=== PATIENT | male | born 1985 | race African-American/Black ===

== ENCOUNTER 2016-04-23 16:58 | Emergency (ER) | payer BC, OTHER ==
--- NOTE | 2016-04-23 17:09 | PDOC ---
History of Present Illness <Garrison Holman - Last Filed: 04/23/16 17:39> - General History Source: Patient Exam Limitations: No Limitations - History of Present Illness Initial Comments: 04/23/16 17:41 The patient is a 30 year old male, with no significant past medical history, who presents to the emergency department with blood in his urine. The patient reports that this morning when he woke up he had the sudden urge to urinate, he states that he urinated a large amount and then felt some dysuria but there was no blood present in his urine. He reports that 30 minutes prior to arrival to the emergency department he felt the same sensation of dysuria and then noticed that there was a significant amount of blood in his urine and there was a clot present in the urine. The patient reports that he urinated in the ED without pain and without blood. He denies any recent vigorous physical activity. He denies back pain, abdominal pain, and any recent trauma. He denies chest pain, shortness of breath, headache and dizziness. He denies fever, chills, nausea, vomit, diarrhea and constipation <Melissa Bolton - Last Filed: 04/23/16 17:45> - General Chief Complaint: Hematuria Stated Complaint: BLOOD IN URINE Time Seen by Provider: 04/23/16 17:02 Past History - Psycho/Social/Smoking Cessation Hx Anxiety: No Suicidal Ideation: No Smoking Status: Yes Smoking History: Former smoker Have you smoked in the past 12 months: Yes Number of Cigarettes Smoked Daily: 2 'Breaking Loose' booklet given: 02/28/16 <Garrison Holman - Last Filed: 04/23/16 17:39> <Melissa Bolton - Last Filed: 04/23/16 17:45> - Past Medical History Allergies/Adverse Reactions: Allergies Allergy/AdvReac Type Severity Reaction Status Date / Time No Known Allergies Allergy Verified 04/23/16 17:00 Home Medications: Ambulatory Orders NK [No Known Home Medication] 04/23/16 Review of Systems - Review of Systems Able to Perform ROS?: Yes Comments:: 04/23/16 17:42 CONSTITUTIONAL: Absent: fever, no chills, no fatigue EYES: Absent: visual changes ENT: Absent: ear pain, no sore throat CARDIOVASCULAR: Absent: chest pain, no palpitations RESPIRATORY: Absent: cough, no SOB GI: Absent: abdominal pain, no nausea, no vomiting, no constipation, no diarrhea GENITOURINARY: +hematuria, +dysuria Absent: no frequency MUSCULOSKELETAL: Absent: back pain, no arthralgia, no myalgia SKIN: Absent: rash <Melissa Bolton - Last Filed: 04/23/16 17:45> *Physical Exam - Vital Signs Last Vital Signs Temp Pulse Resp BP Pulse Ox 98 F 85 18 148/96 98 04/23/16 17:06 04/23/16 17:06 04/23/16 17:06 04/23/16 17:06 04/23/16 17:06 - Physical Exam Comments: 04/23/16 17:44 GENERAL: Well-appearing, well-nourished. No apparent distress. HEENT: Normocephalic, atraumatic. PERRL, EOM intact. CARDIOVASCULAR: Normal S1, S2. Regular rate and rhythm. PULMONARY: Clear to auscultation bilaterally. ABDOMEN: Soft, non-distended, non-tender. EXTREMITIES: Normal ROM in all four extremities. No gross deformities. SKIN: Warm, dry. No rash NEUROLOGICAL: No focal neurological deficits. <Melissa Bolton - Last Filed: 04/23/16 17:45> ED Treatment Course - ADDITIONAL ORDERS Additional order review: Laboratory Results 04/23/16 17:10 Urine Color Yellow Urine Appearance Clear Urine pH 6.5 Ur Specific [place] 1.020 Urine Protein Negative Urine Glucose (UA) Negative Urine Ketones Negative Urine Blood Trace-intact Urine Nitrite Negative Urine Bilirubin Negative Urine Urobilinogen 0.2 e.u/dl Ur Leukocyte Esterase Negative <Melissa Bolton - Last Filed: 04/23/16 17:45> Medical Decision Making - Medical Decision Making 04/23/16 17:08 The patient is well-appearing and in no acute distress Will obtain urinalysis and culture 04/23/16 17:39 Trace blood noted on urinalysis No evidence of UTI No evidence of ureterolithiasis Clinical impression: Microscopic hematuria Will refer to urology I discussed the physical exam findings, ancillary test results and final diagnoses with the patient. I answered all of the patient's questions. The patient was satisfied with the care received and felt comfortable with the discharge plan and treatment plan. The patient will call their primary care physician within 24 hours to arrange follow-up and will return to the Emergency Department with any new, persistent or worsening symptoms. <Garrison Holman - Last Filed: 04/23/16 17:39> *DC/Admit/Observation/Transfer <Garrison Holman - Last Filed: 04/23/16 17:39> - Attestations Scribe Attestion: 04/23/16 17:42 Documentation prepared by KELLY Mullen, acting as medical billing and coding instructor for Garrison Holman MD. <Melissa Bolton - Last Filed: 04/23/16 17:45> Diagnosis at time of Disposition: Hematuria - Discharge Dispostion Disposition: HOME Condition at time of disposition: Improved - Referrals Referrals: Austin Rothman MD [Staff Physician] - 3 days - Patient Instructions Printed Discharge Instructions: DI for Hematuria Additional Instructions: Return to the emergency department immediately with ANY new, persistent or worsening symptoms. You MUST call and follow up with your doctor tomorrow. Please make sure your doctor reviews the results of your emergency department evaluation. - Post Discharge Activity Work/School Note: Back to Work
[2016-04-23 17:19] VITALS: BP 148/96; PULSE 85; TEMP 98; BMI 33.9
[2016-04-23 17:26] LABS: PH,URINE 6.5 (4.5-8); URINE APPEARANCE Clear; URINE BILIRUBIN Negative (NEGATIVE); URINE BLOOD Trace-intact (NEGATIVE); URINE GLUCOSE (UA) Negative (NEGATIVE); URINE KETONE Negative (NEGATIVE); URINE LEUK ESTERASE Negative (NEGATIVE); URINE NITRITE Negative (NEGATIVE); URINE PROTEIN Negative (NEGATIVE); URINE UROBILINOGEN 0.2 E.U/dl (0.2-1.0)
[2016-04-23 17:28] LABS: URINE COLOR YELLOW
== END 2016-04-23 17:52 | disposition home or self-care (01) ==
LOC: FER 16:58
DX: R31.29 Other microscopic hematuria (principal)
CPT/HCPCS: 81003; 87086; 99281-25

== ENCOUNTER 2019-12-30 17:06 | Emergency (ER) | payer BC, OTHER ==
[2019-12-30 17:15] VITALS: BP 149/101; PULSE 69; TEMP 98.4; BMI 33.9
--- NOTE | 2019-12-30 17:16 | PDOC ---
Rapid Medical Evaluation Time Seen by Provider: 12/30/19 17:11 Medical Evaluation: Allergies Allergy/AdvReac Type Severity Reaction Status Date / Time No Known Allergies Allergy Verified 12/30/19 17:11 12/30/19 17:11 Pt presents for evaluation of elevated blood pressure and chest pressure since last night. States he has been off of his blood pressure meds for about two weeks d/t pharmacy issues. Restarted them yesterday Exam: BP 149/101. RRR S1S2 present. Lungs CTAB Orders: labs, EKG, CXR Pt to proceed to the ER for further evaluation Discharge Disposition - Diagnosis Chest pain Qualifiers: Chest pain type: unspecified Qualified Code(s): R07.9 - Chest pain, unspecified - Referrals - Patient Instructions - Post Discharge Activity
[2019-12-30 18:03] LABS: BASO % 1.1 % (0-2.0); EOS % 1.1 % (0-4.5); HEMATOCRIT 48.5 % (35.4-49); HEMOGLOBIN 15.5 GM/dL (11.7-16.9); LYMPH % 27.6 % (8-40); MCH 28.7 pg (25.7-33.7); MEAN CELL VOLUME 89.6 fl (80-96); MEAN PLT VOLUME 8.3 fl (7.5-11.1); MONO % 8.9 % (3.8-10.2); NEUT % 61.3 % (42.8-82.8); PLATELET COUNT 205 K/MM3 (134-434); RBC 5.42 M/mm3 (4.00-5.60); RDW 13.1 % (11.9-15.9); WHITE BLOOD COUNT 7.5 K/mm3 (4.0-10.0)
--- NOTE | 2019-12-30 18:17 | PDOC ---
History of Present Illness - General Chief Complaint: Blood Pressure Problem Stated Complaint: BLOOD PRESSURE PROBLEM Time Seen by Provider: 12/30/19 17:11 History Source: Patient Exam Limitations: No Limitations - History of Present Illness Initial Comments: 12/30/19 18:12 34-year-old male history of hypertension ran out of amlodipine 10 mg daily approximately 2 weeks ago. Presents to ED complaining of midsternal chest pressure with tingling to bilateral upper and lower extremities since 2 AM today with intermittent palpitations. Patient fell asleep from approximately 5 AM to 12 noon today awoke with the same symptoms, took amlodipine 10 mg one tablet and feels "slightly better at this time ". Denies shortness of breath, nausea, vomiting, back pain, abdominal pain, cough, recent illness, calf pain, recent travel, known sick contacts. Smokes approximately 7 cigarettes daily, occasional alcohol consumption, denies any other use of illicits. has pmd at [facility] (Dr. Bowers). ROS: as above PE: GENERAL: well-appearing, NAD HEAD: NCAT EYES: Pupils equal, round and reactive to light, sclera anicteric, conjunctiva clear ENT: Normal bilateral ear canals and TMs, pharynx: no erythema, no exudate, uvula midline NECK: supple CHEST: nontender RESP: clear, no w/r/r CARDIO: rrr, no m/g/r ABD: +BS, soft, nontender, non distended BACK: no midline spinal ttp, no CVAT EXTREMITIES: Normal range of motion, no edema NEUROLOGICAL: Normal speech, normal gait SKIN: Warm, Dry Is this a multiple visit Asthma Patient?: No Past History - Medical History Allergies/Adverse Reactions: Allergies Allergy/AdvReac Type Severity Reaction Status Date / Time No Known Allergies Allergy Verified 12/30/19 17:11 Home Medications: Ambulatory Orders Amlodipine Besylate [Norvasc -] 10 mg PO DAILY 12/30/19 COPD: No HTN: Yes Thyroid Disease: No - Immunization History Immunization Up to Date: No - Psycho-Social/Smoking History Smoking Status: Yes Smoking History: Current every day smoker Have you smoked in the past 12 months: Yes Number of Cigarettes Smoked Daily: 2 Information on smoking cessation initiated: No 'Breaking Loose' booklet given: 02/28/16 - Substance Abuse Hx (Audit-C & DAST Scrn) How often the patient has a drink containing alcohol: 2-3 times / week Number of drinks the patient has on a typical day: 3 or 4 How often the patient has six or more drinks on one occasion: Never Score: In Men: 4 or > Positive; In Women: 3 or > Positive: 4 Screen Result (Pos requires Nsg. Audit-10AR): Positive In the last yr the pt used illegal drug/Rx for NonMed reason: No Score: Yes response is considered Positive: 0 Screen Result (Positive result requires Nsg. DAST-10): Negative *Physical Exam - Vital Signs Last Vital Signs Temp Pulse Resp BP Pulse Ox 98.4 F 69 18 149/101 H 100 12/30/19 17:13 12/30/19 17:13 12/30/19 17:13 12/30/19 17:13 12/30/19 17:13 ED Treatment Course - LABORATORY CBC & Chemistry Diagram: 12/30/19 17:39 12/30/19 17:39 - ADDITIONAL ORDERS Additional order review: 12/30/19 17:39 RBC 5.42 MCV 89.6 MCHC 32.0 RDW 13.1 MPV 8.3 Neutrophils % 61.3 Lymphocytes % 27.6 D Monocytes % 8.9 Eosinophils % 1.1 Basophils % 1.1 Medical Decision Making - Medical Decision Making 12/30/19 18:16 34-year-old male history of hypertension ran out of amlodipine 10 mg daily approximately 2 weeks ago. Presents to ED complaining of midsternal chest p ressure with tingling to bilateral upper and lower extremities since 2 AM today with intermittent palpitations. Patient fell asleep from approximately 5 AM to 12 noon today awoke with the same symptoms, took amlodipine 10 mg one tablet and feels "slightly better at this time ". Denies shortness of breath, nausea, vomiting, back pain, abdominal pain, cough, recent illness, calf pain, recent travel, known sick contacts. Smokes approximately 7 cigarettes daily, occasional alcohol consumption, denies any other use of illicits. has pmd at [facility] (Dr. Bowers). labs including trop CXR ecg: HR 65, nsr, no acute t or tw changes re assess 12/30/19 18:49 CXR: Unremarkable on my wet read Discussed labs including negative troponin with patient initial BP 149/101, repeat BP 136/91 Advised patient to continue taking amlodipine 10 mg daily as prescribed Advised patient to remain hydrated Follow-up with your primary care doctor within 1 week Return to ED if any concerning symptoms Discharge - Discharge Information Problems reviewed: Yes Clinical Impression/Diagnosis: Chest pain Qualifiers: Chest pain type: unspecified Qualified Code(s): R07.9 - Chest pain, unspecified Condition: Stable Disposition: HOME - Admission No - Follow up/Referral Referrals: Erika Bowers MD [Primary Care Provider] - - Patient Discharge Instructions Additional Instructions: Continue taking amlodipine 10 mg daily as directed Follow-up with your doctor within 1 week Return to ED if any concerning symptoms - Post Discharge Activity
[2019-12-30 18:32] LABS: ALBUMIN 3.7 g/dl (3.4-5.0); ALK PHOS 104 U/L (45-117); ANION GAP 5 MMOL/L (8-16); BILIRUBIN,TOTAL 0.4 mg/dL (0.2-1); BLOOD UREA NITROGEN 12.4 mg/dL (7-18); CHLORIDE 104 mmol/L (98-107); CO2 29 mmol/L (21-32); CREATININE 1.2 mg/dL (0.55-1.3); GLUCOSE,RANDOM 81 mg/dL (74-106); SGOT/AST 26 U/L (15-37); SGPT/ALT 30 U/L (13-61); SODIUM 138 mmol/L (136-145); TOT PROT 7.7 g/dl (6.4-8.2)
[2019-12-30 18:57] LABS: INR 1.05 (0.83-1.09); PROTHROMBIN TIME (PATIENT) 12.4 SEC (9.7-13.0)
--- NOTE | 2020-01-01 10:59 | EKG ---
Test Reason : Blood Pressure : / mmHG Vent. Rate : 065 BPM Atrial Rate : 065 BPM P-R Int : 190 ms QRS Dur : 100 ms QT Int : 390 ms P-R-T Axes : 055 071 023 degrees QTc Int : 405 ms NORMAL SINUS RHYTHM MODERATE VOLTAGE CRITERIA FOR LVH, MAY BE NORMAL VARIANT BORDERLINE ECG WHEN COMPARED WITH ECG OF 17-JUL-2019 04:49, NO SIGNIFICANT CHANGE WAS FOUND Confirmed by MD Marco, Td ([id number]) on 01/01/2020 10:59:05 AM Referred By: Confirmed By:Td Lara MD
== END 2019-12-30 19:12 | disposition home or self-care (01) ==
LOC: JER 17:06
DX: R07.9 Chest pain, unspecified (principal)
CPT/HCPCS: 36415; 71046-TC-FY; 80053; 82550; 82553; 84484; 85025; 85610; 93005; 93010; 99285-25

== ENCOUNTER 2020-05-11 02:45 | Emergency (ER) | payer BC, OTHER ==
[2020-05-11 02:59] VITALS: TEMP 98.2; BMI 23.7
[2020-05-11 03:38] LABS: BASO % 1.1 % (0-2.0); EOS % 1.2 % (0-4.5); HEMATOCRIT 46.6 % (35.4-49); HEMOGLOBIN 15.1 GM/dL (11.7-16.9); LYMPH % 26.4 % (8-40); MCH 29.2 pg (25.7-33.7); MCHC 32.4 g/dl (32.0-35.9); MONO % 9.4 % (3.8-10.2); NEUT % 61.9 % (42.8-82.8); PLATELET COUNT 205 K/MM3 (134-434); RBC 5.17 M/mm3 (4.00-5.60); RDW 13.8 % (11.9-15.9); WHITE BLOOD COUNT 6.8 K/mm3 (4.0-10.0)
[2020-05-11 03:52] LABS: CHLORIDE 110 mmol/L (98-107); POTASSIUM 4.2 mmol/L (3.5-5.1); SODIUM 144 mmol/L (136-145)
[2020-05-11 03:55] LABS: ALBUMIN 3.7 g/dl (3.4-5.0); ANION GAP 5 MMOL/L (8-16); BLOOD UREA NITROGEN 13.9 mg/dL (7-18); CALCIUM 8.8 mg/dL (8.5-10.1); CO2 29 mmol/L (21-32)
[2020-05-11 03:56] LABS: GLUCOSE,RANDOM 90 mg/dL (74-106)
[2020-05-11 03:58] LABS: CREATININE 1.2 mg/dL (0.55-1.3); SGOT/AST 16 U/L (15-37); SGPT/ALT 26 U/L (13-61)
[2020-05-11 04:00] LABS: BILIRUBIN,TOTAL 0.3 mg/dL (0.2-1); TOT PROT 7.2 g/dl (6.4-8.2)
[2020-05-11 04:01] LABS: ALK PHOS 101 U/L (45-117)
[2020-05-11 04:41] VITALS: BP 142/90; PULSE 81
== END 2020-05-11 04:40 | disposition home or self-care (01) ==
LOC: JER 02:45
DX: I10 Essential (primary) hypertension (principal)
CPT/HCPCS: 36415; 71046-TC-FY; 80053; 82550; 82553; 84484; 85025; 93005; 93010; 99284-25

== ENCOUNTER 2020-07-02 01:35 | Emergency (ER) | payer BC, OTHER ==
[2020-07-02 01:40] VITALS: TEMP 98.6; BMI 32.5
[2020-07-02] MEDS ORDERED: IBUPROFEN 600 MG TABLET (FP) PO ONE ×2 (01:57→02:01)
[2020-07-02 02:04] VITALS: BP 137/89; PULSE 79
== END 2020-07-02 02:06 | disposition home or self-care (01) ==
LOC: FER 01:35
DX: M54.10 Radiculopathy, site unspecified (principal)
CPT/HCPCS: 99284-25

== ENCOUNTER 2020-11-10 03:06 | Emergency (ER) | payer BC, OTHER ==
[2020-11-10 03:12] VITALS: TEMP 99.2; BMI 32.3
[2020-11-10] MEDS ORDERED: ASPIRIN 81 MG CHEWABLE TABLETS PO ONE (03:13)
[2020-11-10] MEDS ORDERED: ASPIRIN 81 MG CHEWABLE TABLETS ONE (03:23)
[2020-11-10 04:20] LABS: BASO % 0.5 % (0-2.0); EOS % 1.7 % (0-4.5); HEMOGLOBIN 15.9 GM/dL (11.7-16.9); LYMPH % 31.9 % (8-40); MEAN CELL VOLUME 87.9 fl (80-96); MEAN PLT VOLUME 8.2 fl (7.5-11.1); MONO % 7.6 % (3.8-10.2); NEUT % 58.3 % (42.8-82.8); PLATELET COUNT 195 10^3/uL (134-434); RBC 5.46 M/mm3 (4.00-5.60); RDW 13.8 % (11.9-15.9); WHITE BLOOD COUNT 7.6 K/mm3 (4.0-10.0)
[2020-11-10 04:36] LABS: CHLORIDE 107 mmol/L (98-107); SODIUM 140 mmol/L (136-145)
[2020-11-10 04:38] LABS: CALCIUM 8.6 mg/dL (8.5-10.1)
[2020-11-10 04:39] LABS: ALBUMIN 3.7 g/dl (3.4-5.0); ANION GAP 7 MMOL/L (8-16); BLOOD UREA NITROGEN 12.1 mg/dL (7-18); CO2 26 mmol/L (21-32); GLUCOSE,RANDOM 114 mg/dL (74-106)
[2020-11-10 04:42] LABS: CREATININE 1.3 mg/dL (0.55-1.3); SGOT/AST 21 U/L (15-37); SGPT/ALT 34 U/L (13-61)
[2020-11-10 04:43] LABS: BILIRUBIN,TOTAL 0.2 mg/dL (0.2-1)
[2020-11-10 04:44] LABS: ALK PHOS 107 U/L (45-117); TOT PROT 7.6 g/dl (6.4-8.2)
[2020-11-10 05:20] VITALS: BP 125/84; PULSE 80
== END 2020-11-10 05:28 | disposition home or self-care (01) ==
LOC: FER 03:06
DX: R07.9 Chest pain, unspecified (principal)
CPT/HCPCS: 36415; 71046-TC-FY; 80053; 82550; 82553; 84484; 85025; 93005; 99285-25

== ENCOUNTER 2021-07-18 00:09 | Emergency (ER) | payer BC, OTHER ==
[2021-07-18 00:20] VITALS: BP 153/93; PULSE 87; TEMP 98.5; BMI 32.3
[2021-07-18] MEDS ORDERED: MAG HYDROX/AL HYDROX/SIMETH 30 ML UNIT-DOSE CUP PO ONE (01:02)
[2021-07-18] MEDS ORDERED: ACETAMINOPHEN 500 MG TABLET (FP) PO ONE (01:02)
[2021-07-18] MEDS ORDERED: ACETAMINOPHEN 500 MG TABLET (FP) ONE (01:07)
[2021-07-18] MEDS ORDERED: MAG HYDROX/AL HYDROX/SIMETH 30 ML UNIT-DOSE CUP ONE (01:07)
== END 2021-07-18 01:16 | disposition home or self-care (01) ==
LOC: FER 00:09
DX: R51.9 Headache, unspecified (principal); K21.9 Gastro-esophageal reflux disease without esophagitis; R07.0 Pain in throat
CPT/HCPCS: 87651; 93005; 99284-25

== ENCOUNTER 2021-07-31 22:43 | Emergency (ER) | payer BC, OTHER ==
[2021-07-31 22:48] VITALS: PULSE 85; TEMP 97.8; BMI 32.5
[2021-07-31] MEDS ORDERED: ACETAMINOPHEN 500 MG TABLET (FP) PO ONE (23:08)
[2021-07-31] MEDS ORDERED: LORATADINE 10 MG TABLET PO ONE (23:09)
[2021-07-31] MEDS ORDERED: ACETAMINOPHEN 325 MG TABLET (FP) ONE (23:21)
[2021-07-31 23:38] VITALS: BP 144/87
[2021-08-01] MEDS ORDERED: IBUPROFEN 400 MG TABLET (FP) PO ONE ×2 (00:18→00:25)
== END 2021-08-01 00:43 | disposition home or self-care (01) ==
LOC: JER 22:43
DX: R51.9 Headache, unspecified (principal)
CPT/HCPCS: 70450-TC; 99284-25

== ENCOUNTER 2021-08-20 21:48 | Emergency (ER) | payer BC, OTHER ==
[2021-08-20 21:58] VITALS: BP 149/97; PULSE 84; TEMP 98.9; BMI 32.5
[2021-08-20 22:12] LABS: HEMATOCRIT 47.3 % (35.4-49); HEMOGLOBIN 16.2 G/dL (11.7-16.9); MCH 30.1 pg (25.7-33.7); MCHC 34.2 g/dl (32.0-35.9); MEAN CELL VOLUME 88.3 fl (80-96); MEAN PLT VOLUME 7.8 fl (7.5-11.1); PLATELET COUNT 199.5 10^3/uL (134-434); RBC 5.36 10^6/uL (4.00-5.60); RDW 14.1 % (11.9-15.9); WHITE BLOOD COUNT 8.1 10^3/uL (4.0-10.8)
[2021-08-20 22:18] LABS: PLATELET ESTIMATE ADEQUATE
[2021-08-20 22:29] LABS: ALBUMIN 3.9 g/dl (3.4-5.0); BILIRUBIN,TOTAL 0.3 mg/dl (0.2-1); CALCIUM 9.5 mg/dl (8.5-10); CREATININE 1.2 mg/dl (0.55-1.3); TOT PROT 7.2 g/dl (6.4-8.2)
== END 2021-08-20 23:02 | disposition home or self-care (01) ==
LOC: FER 21:48
DX: R10.30 Lower abdominal pain, unspecified (principal)
CPT/HCPCS: 36415; 80053; 85025; 99283-25

== ENCOUNTER 2023-04-06 19:52 | Emergency (ER) | payer BC, OTHER ==
[2023-04-06 19:58] VITALS: BMI 36.2
[2023-04-06 20:43] LABS: BASO % 0.8 % (0-2.0); EOS % 1.2 % (0-4.5); HEMATOCRIT 49.9 % (35.4-49); LYMPH % 25.1 % (8-40); MCH 28.4 pg (25.7-33.7); MEAN CELL VOLUME 88.7 fl (80-96); MEAN PLT VOLUME 8.2 fl (7.5-11.1); MONO % 7.7 % (3.8-10.2); NEUT % 65.2 % (42.8-82.8); PLATELET COUNT 215 10^3/uL (134-434); RBC 5.63 M/mm3 (4.00-5.60); RDW 13.9 % (11.9-15.9); WHITE BLOOD COUNT 9.3 K/mm3 (4.0-10.0)
[2023-04-06 20:53] LABS: PROTHROMBIN TIME (PATIENT) 11.6 SEC (9.7-13.0)
[2023-04-06 20:55] LABS: ACTIVATED PTT 33.2 SECONDS (25.2-36.5)
[2023-04-06 21:04] LABS: POTASSIUM 3.8 mmol/L (3.5-5.1)
[2023-04-06 21:06] LABS: CALCIUM 9.4 mg/dL (8.5-10.1)
[2023-04-06 21:07] LABS: ALBUMIN 3.6 g/dl (3.4-5.0); BLOOD UREA NITROGEN 11.9 mg/dL (7-18)
[2023-04-06 21:10] LABS: CREATININE 1.4 mg/dL (0.55-1.3)
[2023-04-06] MEDS ORDERED: ASPIRIN 325 MG TABLET PO ONE (21:10)
[2023-04-06 21:11] LABS: BILIRUBIN,TOTAL 0.3 mg/dL (0.2-1)
[2023-04-06] MEDS ORDERED: LACTATED RINGERS SOLUTION 1000 ML INFUS.BAG IV ONE (21:11)
[2023-04-06 21:12] LABS: TOT PROT 7.7 g/dl (6.4-8.2)
[2023-04-06] MEDS ORDERED: ASPIRIN 81 MG CHEWABLE TABLETS ONE (21:29)
[2023-04-06 23:49] LABS: POTASSIUM 3.6 mmol/L (3.5-5.1)
[2023-04-06 23:50] LABS: CALCIUM 8.7 mg/dL (8.5-10.1)
[2023-04-06 23:51] LABS: BLOOD UREA NITROGEN 11.7 mg/dL (7-18)
[2023-04-06 23:54] LABS: CREATININE 1.3 mg/dL (0.55-1.3)
[2023-04-07 01:29] VITALS: BP 148/74; PULSE 64; RESP 18; TEMP 98.2
== END 2023-04-07 01:28 | disposition home or self-care (01) ==
LOC: JER 19:52
DX: R07.89 Other chest pain (principal); R00.2 Palpitations; Z20.822 Contact with and (suspected) exposure to COVID-19
CPT/HCPCS: 0241U-QW; 36415; 71046-TC-FY; 80048; 80053; 84443; 84484; 85025; 85610; 85730; 93005; 93010; 99285-25

== ENCOUNTER 2023-04-11 18:22 | Emergency (ER) | payer BC, OTHER ==
[2023-04-11 18:36] VITALS: BP 152/98; PULSE 98; RESP 20; TEMP 101.8; BMI 36.9
[2023-04-11] MEDS ORDERED: guaiFENesin/D-METHORPHAN HB 10 ML UNIT-DOSE CUPS PO ONE (19:49)
[2023-04-11] MEDS ORDERED: IBUPROFEN 400 MG TABLET (FP) PO ONE ×2 (19:49→20:08)
[2023-04-11] MEDS ORDERED: ACETAMINOPHEN 325 MG TABLET (FP) PO ONE (19:50)
[2023-04-11] MEDS ORDERED: ACETAMINOPHEN 325 MG TABLET (FP) ONE (20:08)
[2023-04-11] MEDS ORDERED: guaiFENesin/D-METHORPHAN HB 10 ML UNIT-DOSE CUPS ONE (20:08)
== END 2023-04-11 20:08 | disposition home or self-care (01) ==
LOC: FER 18:22
DX: R50.9 Fever, unspecified (principal); R09.81 Nasal congestion; J02.9 Acute pharyngitis, unspecified; M79.10 Myalgia, unspecified site; R05.9 Cough, unspecified; J06.9 Acute upper respiratory infection, unspecified; Z20.822 Contact with and (suspected) exposure to COVID-19
CPT/HCPCS: 0241U-QW; 99283-25

== ENCOUNTER 2024-03-23 15:52 | Emergency (ER) | payer BC, OTHER ==
[2024-03-23 16:08] VITALS: BP 153/92; PULSE 84; RESP 16; TEMP 98.5; BMI 30.5
[2024-03-23 17:03] LABS: BASO % 0.5 % (0-2.0); EOS % 0.4 % (0-4.5); HEMATOCRIT 40.4 % (35.4-49); HEMOGLOBIN 12.5 GM/dL (11.7-16.9); LYMPH % 18.8 % (8-40); MCH 22.5 pg (25.7-33.7); MCHC 30.9 g/dl (32.0-35.9); MEAN CELL VOLUME 72.7 fl (80-96); MEAN PLT VOLUME 7.3 fl (7.5-11.1); MONO % 6.7 % (3.8-10.2); NEUT % 73.6 % (42.8-82.8); PLATELET COUNT 296 10^3/uL (134-434); RBC 5.55 M/mm3 (4.00-5.60); RDW 21.6 % (11.9-15.9); WHITE BLOOD COUNT 9.1 K/mm3 (4.0-10.0)
[2024-03-23 17:28] LABS: ANISOCYTOSIS 2+; MACROCYTOSIS 0; OVALOCYTE 1+; TARGET CELLS 1+
[2024-03-23 17:30] LABS: POTASSIUM 3.8 mmol/L (3.5-5.1)
[2024-03-23 17:31] LABS: CALCIUM 10.2 mg/dL (8.5-10.1)
[2024-03-23 17:33] LABS: ALBUMIN 3.9 g/dl (3.4-5.0); BLOOD UREA NITROGEN 18.1 mg/dL (7-18)
[2024-03-23 17:36] LABS: CREATININE 1.7 mg/dL (0.55-1.3)
[2024-03-23 17:37] LABS: BILIRUBIN,TOTAL 0.4 mg/dL (0.2-1); TOT PROT 8.2 g/dl (6.4-8.2)
== END 2024-03-23 18:56 | disposition home or self-care (01) ==
LOC: JER 15:52
DX: R53.1 Weakness (principal); R42 Dizziness and giddiness; R06.02 Shortness of breath; Z20.822 Contact with and (suspected) exposure to COVID-19
CPT/HCPCS: 0241U-QW; 36415; 71046-TC-FY; 80053; 84484; 85025; 93005; 93010; 99285-25

== ENCOUNTER 2024-11-03 20:47 | Emergency (ER) | payer BC, OTHER ==
[2024-11-03 21:18] VITALS: BP 136/95; PULSE 94; RESP 16; TEMP 99.3; BMI 35.2
== END 2024-11-03 21:48 | disposition home or self-care (01) ==
LOC: FER 20:47
DX: R10.13 Epigastric pain (principal)
CPT/HCPCS: 93005; 99283-25